=== PATIENT | female | born 1955 | race Caucasian/White ===

== ENCOUNTER → 2017-06-25 | Outpatient (CLI) | payer OTHER | LOC: M.RAD 10:35 | DX: R10.9 Unspecified abdominal pain (principal) ==

== ENCOUNTER → 2018-09-18 | Outpatient (CLI) | payer OTHER | LOC: M.RAD 15:08 | DX: Z12.31 Encounter for screening mammogram for malignant neoplasm of breast (principal) ==

== ENCOUNTER → 2020-04-16 | Outpatient (CLI) | payer OTHER ==
--- NOTE | 2020-04-16 12:42 | EKG ---
[place] [address] ELECTROCARDIOGRAM REPORT Name: GUDELIA MEDEIROS Room: [facility]#: [id number] Admission: 04/16/20 Attend Phys: Eliseo Holt, Discharge: Date of : 57 Date of Service: 04/16/20 0837 Report #: [id number] THIS REPORT FOR: //name// [facility] Test Date: 2020-04-16 Test Time: 08:37:58 Pat Name: GUDELIA MEDEIROS Department: Room: Gender: F [employer]: : [id number] Requested By: Eliseo Holt Order Number: [id number] Camila MD: Krunal Espinosa Measurements Intervals [place] Rate: 65 P: 81 CT: 192 QRS: 87 QRSD: 128 T: 87 QT: 410 QTc: 427 Interpretive Statements Sinus rhythm Nonspecific intraventricular conduction delay No previous ECG available for comparison Electronically Signed On 04-16-2020 12:42:17 [employer] by Krunal Espinosa [email or web address] <ELECTRONICALLY SIGNED> By: Krunal Espinosa MD, [facility] 04/16/20 1242 0837 0837 Krunal Espinosa MD, FAC /EPI
== END ==
LOC: M.CRD 08:19
PROVIDERS: ATTEND Internal Medicine Hematology & Oncology
DX: C92.10 Chronic myeloid leukemia, BCR/ABL-positive, not having achieved remission (principal); Z79.899 Other long term (current) drug therapy